=== PATIENT | female | born 1945 | race Caucasian/White ===

== ENCOUNTER 2018-10-13 22:32 | Emergency (ER) | payer OTHER, BC ==
[2018-10-13 22:41] VITALS: BP 129/58; PULSE 72; TEMP 98.7; BMI 18.3
[2018-10-13 23:09] LABS: BASO % 0.2 % (0-2.0); EOS % 0.4 % (0-4.5); HEMATOCRIT 25.7 % (32.4-45.2); HEMOGLOBIN 8.4 GM/dl (10.7-15.3); LYMPH % 17.2 % (8-40); MCH 33.1 pg (25.7-33.7); MCHC 32.8 g/dl (32.0-36.0); MEAN CELL VOLUME 100.9 fl (80-96); MEAN PLT VOLUME 9.1 fl (7.5-11.1); MONO % 9.3 % (3.8-10.2); NEUT % 72.9 % (42.8-82.8); PLATELET COUNT 79 K/MM3 (134-434); RBC 2.55 M/mm3 (3.60-5.2); RDW 13.9 % (11.6-15.6); WHITE BLOOD COUNT 8.4 K/mm3 (4.0-10.8)
--- NOTE | 2018-10-13 23:15 | PDOC ---
History of Present Illness - General Chief Complaint: Oral Ulcers Stated Complaint: ORAL BLEEDING Time Seen by Provider: 10/13/18 22:36 History Source: Patient, Spouse Exam Limitations: No Limitations - History of Present Illness Initial Comments: 10/13/18 23:10 CHIEF COMPLAINT: Bleeding from the gums, right lower quadrant since this afternoon at 4 PM HISTORY OF PRESENT ILLNESS: 73-year-old female with history of mantle cell lymphoma and thrombocytopenia maintained on rituximab. Last CBC was performed approximately 2 months ago. On October 09, patient underwent oral surgery for implants in the right lower quadrant of the mouth. She was doing well until today when she started to have bleeding in that area. She has been spitting out clots so she came to the emergency department. She denies any dizziness or syncope. She denies any other complaints. Patient denies use of aspirin or any other type of anticoagulants. She did take ibuprofen for the dental pain as prescribed by her oral surgeon. REVIEW OF SYSTEMS: GENERAL/CONSTITUTIONAL: No fever or chills. No weakness. No weight change. HEAD, EYES, EARS, NOSE AND THROAT: No change in vision. No ear pain or discharge. No sore throat. + + Positive bleeding from the mouth. CARDIOVASCULAR: No chest pain or shortness of breath. RESPIRATORY: No cough, wheezing, or hemoptysis. GASTROINTESTINAL: No nausea, vomiting, diarrhea or constipation. No rectal bleeding. GENITOURINARY: No dysuria, frequency, or change in urination. MUSCULOSKELETAL: No joint or muscle swelling or pain. No neck or back pain. SKIN AND BREASTS: No rash or easy bruising. NEUROLOGIC: No headache, vertigo, loss of consciousness, or loss of sensation. PSYCHIATRIC: No depression or anxiety. ENDOCRINE: No increased thirst. No abnormal weight change. HEMATOLOGIC/LYMPHATIC: No anemia, easy bleeding, or history of blood clots. + + Positive history of mantle cell lymphoma and thrombocytopenia. ALLERGIC/IMMUNOLOGIC: No hives or skin allergy. No latex allergy. Past History - Past Medical History Allergies/Adverse Reactions: Allergies Allergy/AdvReac Type Severity Reaction Status Date / Time No Known Allergies Allergy Verified 03/09/16 18:56 Home Medications: Ambulatory Orders Multivitamin W-Minerals/Lutein [Centrum Silver Tablet] 1 each PO DAILY tablet 04/08/13 Polson-3 Fatty Acids [Fish Oil] 500 mg PO BID capsule 04/08/13 Amoxicillin - [Amoxicillin 500mg Capsule -] 500 mg PO BID 10/13/18 Cancer: Yes (mantle cell lymphoma 3 years) COPD: No Hypercholesterolemia: Yes Other medical history: thrombocytopenia - Immunization History Immunization Up to Date: Yes - Suicide/Smoking/Psychosocial Hx Smoking History: Never smoked Have you smoked in the past 12 months: No Hx Alcohol Use: Yes (social one glass of wine) Drug/Substance Use Hx: No *Physical Exam - Vital Signs Last Vital Signs Temp Pulse Resp BP Pulse Ox 98.7 F 72 16 129/58 L 97 10/13/18 22:38 10/13/18 22:38 10/13/18 22:38 10/13/18 22:38 10/13/18 22:38 - Physical Exam Comments: 10/13/18 23:13 GENERAL: The patient is awake, alert, and fully oriented, in no acute distress. HEAD: Normal with no signs of trauma. EYES: Pupils equal, round and reactive to light, extraocular movements intact, sclera anicteric, conjunctiva clear. ENT: Ears normal, nares patent, + + oropharynx with oozing of blood from the right lower quadrant gums. Moist mucous membranes. NECK: Normal range of motion, supple without lymphadenopathy, JVD, or masses. LUNGS: Breath sounds equal, clear to auscultation bilaterally. No wheezes, and no crackles. HEART: Regular rate and rhythm, normal S1 and S2 without murmur, rub or gallop. ABDOMEN: Soft, nontender, normoactive bowel sounds. No guarding, no rebound. No masses. EXTREMITIES: Normal range of motion, no edema. No clubbing or cyanosis. No cords, erythema, or tenderness. NEUROLOGICAL: Cranial nerves II through XII grossly intact. Normal speech, normal gait. PSYCH: Normal mood, normal affect. SKIN: Warm, Dry, normal turgor, no rashes or lesions noted. Moderate Sedation - Procedure Monitoring Vital Signs: Procedure Monitoring Vital Signs Temperature 98.7 F 10/13/18 22:38 Pulse Rate 72 10/13/18 22:38 Respiratory Rate 16 10/13/18 22:38 Blood Pressure 129/58 L 10/13/18 22:38 O2 Sat by Pulse Oximetry (%) 97 10/13/18 22:38 ED Treatment Course - LABORATORY CBC & Chemistry Diagram: 10/13/18 22:55 10/13/18 22:55 - ADDITIONAL ORDERS Additional order review: 10/13/18 22:55 RBC 2.55 L MCV 100.9 H MCHC 32.8 RDW 13.9 MPV 9.1 Neutrophils % 72.9 Lymphocytes % 17.2 Monocytes % 9.3 Eosinophils % 0.4 Basophils % 0.2 Medical Decision Making - Medical Decision Making 10/13/18 23:14 Mental cell lymphoma and thrombocytopenia presents with bleeding status post oral surgery on October 09. She does not take any anticoagulants, however, her platelet count is low. A teabag and pressure with gauze was applied to the area of bleeding. Patient endorsed to Dr. Paula Gupta at 11 pm change of shift. CBC has just come back. Chemistry studies are pending. Serial examination to assess for control of bleeding is pending. Laboratory Results - last 24 hr 10/13/18 22:55 WBC 8.4 RBC 2.55 L Hgb 8.4 L Hct 25.7 L D MCV 100.9 H MCH 33.1 MCHC 32.8 RDW 13.9 Plt Count 79 L MPV 9.1 Absolute Neuts (auto) 6.1 Neutrophils % 72.9 Lymphocytes % 17.2 Monocytes % 9.3 Eosinophils % 0.4 Basophils % 0.2 *DC/Admit/Observation/Transfer Diagnosis at time of Disposition: Oral bleeding, Thrombocytopenia Mantle cell lymphoma Qualifiers: Lymphoma site: unspecified region Qualified Code(s): C83.10 - Mantle cell lymphoma, unspecified site - Referrals - Patient Instructions - Post Discharge Activity
[2018-10-13 23:23] LABS: ALBUMIN 3.7 g/dl (3.4-5.0); ALK PHOS 52 U/L (45-117); ANION GAP 9 MMOL/L (8-16); BLOOD UREA NITROGEN 29 mg/dl (7-18); CALCIUM 8.8 mg/dl (8.5-10); CHLORIDE 101 mmol/L (98-107); CO2 27 mmol/L (21-32); CREATININE 0.7 mg/dl (0.55-1.3); GLUCOSE,RANDOM 107 mg/dl (74-106); POTASSIUM 4.5 mmol/L (3.5-5.1); SGOT/AST 40 U/L (15-37); SGPT/ALT 26 U/L (13-61); SODIUM 137 mmol/L (136-145)
--- NOTE | 2018-10-14 00:18 | PDOC ---
*Physical Exam - Vital Signs Last Vital Signs Temp Pulse Resp BP Pulse Ox 98.7 F 72 16 129/58 L 97 10/13/18 22:38 10/13/18 22:38 10/13/18 22:38 10/13/18 22:38 10/13/18 22:38 ED Treatment Course - LABORATORY CBC & Chemistry Diagram: 10/13/18 22:55 10/13/18 22:55 - ADDITIONAL ORDERS Additional order review: Laboratory Results 10/13/18 22:55 Sodium 137 Potassium 4.5 Chloride 101 Carbon Dioxide 27 Anion Gap 9 BUN 29 H Creatinine 0.7 Creat Clearance w eGFR > 60 Random Glucose 107 H Calcium 8.8 Total Bilirubin 1.0 AST 40 H ALT 26 Alkaline Phosphatase 52 Total Protein 6.0 L Albumin 3.7 10/13/18 22:55 RBC 2.55 L MCV 100.9 H MCHC 32.8 RDW 13.9 MPV 9.1 Neutrophils % 72.9 Lymphocytes % 17.2 Monocytes % 9.3 Eosinophils % 0.4 Basophils % 0.2 Progress Note - Progress Note Progress Note: Care of this patient received from Dr. Vargas. This 73-year-old woman with a three-year history of mantle cell lymphoma( treated with Rituxan) presents with oral mucosal bleeding 4 days after dental surgical procedure: She was seen by oral surgeon October 09 and surgical posts were placed in right mandibular premolar/first molar surfaces prior to placement of transplants. Late this afternoon she had onset of bleeding from area of post placement. Lab results tonight: H/H 8.4/25.7 Platelet count 79,000 There was some control of bleeding with application of teabag to area. Further hemostasis achieved with application of Surgicel material along with direct pressure on bleeding site and finally application of Gelfoam powder. Re- examination revealed no further significant bleeding from gingival surfaces. Platelet level is lower than normal but not critically low. The patient is unaware of her baseline hemoglobin/hematocrit levels. She states that the "blood levels have been low for years", but does not know actual values. She adamantly denies lightheadedness, chest pain, shortness of breath. She and her are very eager to return home where their grandson is staying. They have been strongly advised to call the oral surgeon and oncologist in the AM for followup ROSALIE. The patient will return to the ER if she has any lightheadedness/recurrent severe bleeding *DC/Admit/Observation/Transfer Diagnosis at time of Disposition: Oral bleeding, Thrombocytopenia Mantle cell lymphoma Qualifiers: Lymphoma site: unspecified region Qualified Code(s): C83.10 - Mantle cell lymphoma, unspecified site - Discharge Dispostion Disposition: HOME Condition at time of disposition: Stable - Referrals Referrals: Edna Brody [Primary Care Provider] - - Patient Instructions Additional Instructions: apply direct pressure to area as needed for recurrent bleeding Avoid extensive chewing or hot liquids/solids until seen by oral surgeon Call your oral surgeon as soon as possible in the morning for reassessment and treatment Call your oncologist in the morning to arrange follow-up within the next 48 hours Return to ER if you have severe, persistent bleeding or experience lightheadedness/chest pain/shortness of breath - Post Discharge Activity
== END 2018-10-14 00:23 | disposition home or self-care (01) ==
LOC: FER 22:32
DX: K13.79 Other lesions of oral mucosa (principal); C83.10 Mantle cell lymphoma, unspecified site; D69.6 Thrombocytopenia, unspecified; E78.00 Pure hypercholesterolemia, unspecified
CPT/HCPCS: 36415; 80053; 85025; 99282-25